=== PATIENT | female | born 1980 | race Caucasian/White ===

== ENCOUNTER 2017-09-09 21:29 | Emergency (ER) | payer OTHER ==
[2017-09-09 21:34] VITALS: BP 152/85; PULSE 104; RESP 18; TEMP 97.1
--- NOTE | 2017-09-09 22:09 | ED ---
Upper Extremity HPI - General Chief Complaint: Extremity Injury, Upper Stated Complaint: finger numbness/arm pain Time Seen by Provider: 09/09/17 21:37 Source: patient Mode of arrival: ambulatory Limitations: no limitations - History of Present Illness Initial Comments: this patient is a 36-year-old woman who presents with complaint that she is having pain that is radiating down her right arm. She states that is been going on intermittently for about 2 weeks. She states that when she got up today was a little bit worse and her family prevailed upon her to come in and have it checked. She noted that the pain had started 2 weeks ago after she had what she is describing as a difficult plasma donation. She states that she was poked with a needle in the right antecubital fossa, but that the flow stopped and that they needed to start the axis in her left arm instead. She states that since that time she has been having some pains down the right arm. She states that she has also been having some intermittent numbness or tingling to the right second and third digits. She is denying weakness throughout the hand and arm. She is not having any type of chest pain or anginal symptoms, including no diaphoresis, dyspnea, nausea or vomiting, palpitations, or lightheadedness. She states that the arm pain does feel better when she uses a warm compress. Complaint: Injury to:: right, arm -: week(s) Handedness: right Place: home Improves With: none Worsens With: movement of extremity Associated Symptoms: numbness - Related Data Home Medications Medication Instructions Recorded Confirmed Ibuprofen [Motrin] 400 mg PO Q6HR PRN 09/09/17 09/09/17 Naproxen Sodium [Aleve] 440 mg PO BID PRN 09/09/17 09/09/17 Previous Rx's Medication Instructions Recorded Ibuprofen [Motrin] 600 mg PO Q8HR #24 tab 09/09/17 Methocarbamol [Robaxin-750] 750 mg PO TID PRN #30 tablet 09/09/17 Allergies Allergy/AdvReac Type Severity Reaction Status Date / Time Penicillins Allergy Nausea & Verified 09/09/17 21:34 Vomiting Review of Systems ROS Statement: Those systems with pertinent positive or pertinent negative responses have been documented in the HPI. ROS Other: All systems not noted in ROS Statement are negative. Constitutional: Denies: fever, chills, weakness Respiratory: Denies: cough, dyspnea Cardiovascular: Denies: chest pain, palpitations, edema, syncope Gastrointestinal: Denies: abdominal pain, nausea, vomiting Musculoskeletal: Denies: back pain Skin: Denies: rash, lesions Neurological: Reports: paresthesias. Denies: headache, weakness, numbness Past Medical History Past Medical History: No Reported History Additional Past Medical History / Comment(s): pleurisy History of Any Multi-Drug Resistant Organisms: None Reported Past Surgical History: Section Past Psychological History: No Psychological Hx Reported Smoking Status: Current every day smoker Past Alcohol Use History: None Reported Past Drug Use History: None Reported General Exam Limitations: no limitations General appearance: alert, in no apparent distress Head exam: Present: atraumatic, normocephalic Neck exam: Present: normal inspection, full ROM. Absent: tenderness, meningismus Respiratory exam: Present: normal lung sounds bilaterally. Absent: respiratory distress, wheezes, rales, rhonchi, stridor, chest wall tenderness Cardiovascular Exam: Present: regular rate, normal rhythm, normal heart sounds. Absent: systolic murmur, diastolic murmur, rubs, gallop Extremities exam: Present: normal inspection, full ROM, tenderness (patient has mild tenderness to palpation in the right antecubital fossa. No palpable cord.) , normal capillary refill Back exam: Present: normal inspection. Absent: CVA tenderness (R), CVA tenderness (L) Neurological exam: Present: alert, CN II-XII intact. Absent: motor sensory deficit Skin exam: Present: warm, dry, intact, normal color. Absent: rash Course Vital Signs 09/09/17 21:31 Temperature 97.1 F L Pulse Rate 104 H Respiratory 18 Rate Blood Pressure 152/85 O2 Sat by Pulse 100 Oximetry Medical Decision Making - Medical Decision Making Patient is a 36-year-old woman presenting with right extremity pain after donating plasma. The exam is somewhat equivocal at this point for possibility of thrombophlebitis but given the temporal relation to the IV access, we'll treat for that. No evidence of DVT to the upper extremity. In addition the patient does have some right trapezius spasm and tenderness, and patient will be given muscle relaxant. Patient will use ice to the trapezius and warm compress and will be reevaluated to ensure that her symptoms resolve. Disposition Clinical Impression: Thrombophlebitis arm Disposition: HOME SELF-CARE Condition: Good Instructions: Superficial Thrombophlebitis (ED) Prescriptions: Ibuprofen [Motrin] 600 mg PO Q8HR #24 tab Methocarbamol [Robaxin-750] 750 mg PO TID PRN #30 tablet PRN Reason: pain Referrals: Mamie Lacey MD [Primary Care Provider] - 1-2 days Jameel Acosta MD [STAFF PHYSICIAN] - 1-2 days
== END 2017-09-09 22:24 | disposition home or self-care (01) ==
LOC: EC 21:29
DX: I80.8 Phlebitis and thrombophlebitis of other sites (principal); F17.200 Nicotine dependence, unspecified, uncomplicated; Z88.0 Allergy status to penicillin
CPT/HCPCS: 99282

== ENCOUNTER 2023-02-21 20:16 | Emergency (ER) | payer OTHER ==
[2023-02-21 20:21] VITALS: BP 131/87; PULSE 90; RESP 20; TEMP 97.6
[2023-02-21] MEDS ORDERED: ACET/COD 300 MG/30 MG STARTER PACK 6 TAB BTL PO STA (20:53)
--- NOTE | 2023-02-21 20:53 | ED ---
General Adult HPI - General Chief complaint: ENT Stated complaint: Pain in right ear Time Seen by Provider: 02/21/23 20:31 Source: patient, RN notes reviewed Mode of arrival: ambulatory Limitations: no limitations - History of Present Illness Initial comments: Patient is a pleasant 42-year-old female presenting to the emergency department with concern with right earache. Onset of symptoms was around or more ago. Patient was seen and started on 5 days of azithromycin and ear drops and Zyrtec day. Antibiotic's had been finished without much improvement of symptoms. Patient does have some muffled hearing. - Related Data Home Medications Medication Instructions Recorded Confirmed Ibuprofen [Motrin] 400 mg PO Q6HR PRN 09/09/17 09/09/17 Naproxen Sodium [Aleve] 440 mg PO BID PRN 09/09/17 09/09/17 Previous Rx's Medication Instructions Recorded Ibuprofen [Motrin] 600 mg PO Q8HR #24 tab 09/09/17 methocarbamoL [Robaxin-750] 750 mg PO TID PRN #30 tablet 09/09/17 Clarithromycin [Biaxin] 500 mg PO BID #20 tab 02/21/23 Allergies Allergy/AdvReac Type Severity Reaction Status Date / Time Penicillins Allergy Nausea & Verified 02/21/23 20:20 Vomiting Review of Systems ROS Statement: Those systems with pertinent positive or pertinent negative responses have been documented in the HPI. ROS Other: All systems not noted in ROS Statement are negative. Constitutional: Denies: fever Eyes: Denies: eye pain ENT: Reports: as per HPI, ear pain Respiratory: Denies: cough Cardiovascular: Denies: chest pain Endocrine: Denies: fatigue Gastrointestinal: Denies: abdominal pain Genitourinary: Denies: dysuria Musculoskeletal: Denies: back pain Skin: Denies: rash Neurological: Denies: weakness Past Medical History Past Medical History: No Reported History Additional Past Medical History / Comment(s): pleurisy History of Any Multi-Drug Resistant Organisms: None Reported Past Surgical History: Section Past Psychological History: No Psychological Hx Reported Smoking Status: Current every day smoker Past Alcohol Use History: None Reported Past Drug Use History: Marijuana General Exam Limitations: no limitations General appearance: alert, in no apparent distress Head exam: Present: atraumatic, normocephalic Eye exam: Present: normal appearance ENT exam: Present: normal oropharynx, other (Patient does have prominence and swelling behind the right TM without erythema. No mastoid erythema or swelling or tenderness. No canal swelling.) Neck exam: Present: normal inspection. Absent: tenderness, lymphadenopathy Respiratory exam: Present: normal lung sounds bilaterally Cardiovascular Exam: Present: regular rate, normal rhythm GI/Abdominal exam: Present: soft. Absent: tenderness Extremities exam: Present: normal inspection Neurological exam: Present: alert Psychiatric exam: Present: normal affect, normal mood Skin exam: Present: normal color Course Vital Signs 02/21/23 20:17 Temperature 97.6 F Pulse Rate 90 Respiratory 20 Rate Blood Pressure 131/87 O2 Sat by Pulse 100 Oximetry Medical Decision Making - Medical Decision Making Was pt. sent in by a medical professional or institution (, PA, WINE CELLAR STOCK CLERK, urgent care, hospital, or custodial...) When possible be specific @ -No Did you speak to anyone other than the patient for history (EMS, parent, family, police, friend...)? What history was obtained from this source @ -No Did you review nursing and triage notes (agree or disagree)? Why? @ -I reviewed and agree with nursing and triage notes Were old charts reviewed (outside hosp., previous admission, EMS record, old EKG, old radiological studies, urgent care reports/EKG's, custodial records)? Report findings @ -No old charts were reviewed Differential Diagnosis (chest pain, altered mental status, abdominal pain women, abdominal pain men, vaginal bleeding, weakness, fever, dyspnea, syncope, headache, dizziness, GI bleed, back pain, seizure, CVA, palpatations, mental health)? @ -not applicable EKG interpreted by me (3pts min.). @ -As above X-rays interpreted by me (1pt min.). @ -None done CT interpreted by me (1pt min.). @ -None done U/S interpreted by me (1pt. min.). @ -None done What testing was considered but not performed or refused? (CT, X-rays, U/S, labs)? Why? @ -None What meds were considered but not given or refused? Why? @ -None Did you discuss the management of the patient with other professionals (professionals i.e. , PA, WINE CELLAR STOCK CLERK, lab, RT, psych nurse, social science teacher, professional application designer, teacher, community chest officer, pillowcase turner)? Give summary @ -No Was smoking cessation discussed for >3mins.? @ -No Was critical care preformed (if so, how long)? @ -No Were there social determinants of health that impacted care today? How? (Homelessness, low income, unemployed, alcoholism, drug addiction, transportation, low edu. Level, literacy, decrease access to med. care, custodial, rehab)? @ -No Was there de-escalation of care discussed even if they declined (Discuss DNR or withdrawal of care, Hospice)? DNR status @ -No What co-morbidities impacted this encounter? (DM, HTN, Smoking, COPD, CAD, Cancer, CVA, ARF, Chemo, Hep., AIDS, mental health diagnosis, sleep apnea, morbid obesity)? @ -None Was patient admitted / discharged? Hospital course, mention meds given and route, prescriptions, significant lab abnormalities, going to OR and other pertinent info. @ -Patient complains right ear pain. Patient has been treated for previously. Patient does have evidence of fluid behind her right ear and will be covered with second round of antibiotics. Patient does have penicillin ALLERGY. Patient is advised ENT follow-up. Undiagnosed new problem with uncertain prognosis? @ -No Drug Therapy requiring intensive monitoring for toxicity (Heparin, Nitro, Insulin, Cardizem)? @ -No Were any procedures done? @ -No Diagnosis/symptom? @ -Otalgia Acute, or Chronic, or Acute on Chronic? @ -Acute Uncomplicated (without systemic symptoms) or Complicated (systemic symptoms)? @ -default Side effects of treatment? @ -No Exacerbation, Progression, or Severe Exacerbation? @ -No Poses a threat to life or bodily function? How? (Chest pain, USA, MS, pneumonia, PE, COPD, DKA, ARF, appy, cholecystitis, CVA, Diverticulitis, Homicidal, Suicidal, threat to staff... and all critical care pts) @ -No Disposition Clinical Impression: Otalgia Disposition: HOME SELF-CARE Condition: Stable Instructions (If sedation given, give patient instructions): Earache (ED) Additional Instructions: Please follow-up with your primary care physician and ENT this week. Return for increased pain, swelling, fever, worsening or changing symptoms or any other concerns. Prescription has been sent to pharmacy. Prescriptions: Clarithromycin [Biaxin] 500 mg PO BID #20 tab Is patient prescribed a controlled substance at d/c from ED?: No Referrals: Mamie Lacey MD [Primary Care Provider] - 1-2 days Time of Disposition: 20:52
== END 2023-02-21 21:15 | disposition home or self-care (01) ==
LOC: EC 20:16
DX: H92.01 Otalgia, right ear (principal); F17.200 Nicotine dependence, unspecified, uncomplicated; F12.90 Cannabis use, unspecified, uncomplicated; Z88.0 Allergy status to penicillin
CPT/HCPCS: 99282